=== PATIENT | female | born 1980 | race Caucasian/White ===

== ENCOUNTER 2021-10-23 18:38 | Emergency (ER) | payer OTHER ==
[2021-10-23 18:42] VITALS: RESP 20; TEMP 98
[2021-10-23] MEDS ORDERED: ASPIRIN 81 MG PO STA (19:36)
[2021-10-23] MEDS ORDERED: KETOROLAC 15 MG/ML 1 ML VIAL IVP STA (19:36)
[2021-10-23] MEDS ORDERED: methocarbamoL 750 MG TAB PO STA ×2 (19:36→21:00)
[2021-10-23 20:12] LABS: Basophils # (A) 0.1 k/uL (0-0.2); Basophils % (A) 1 %; Eosinophils # (A) 0.1 k/uL (0-0.7); Eosinophils % (A) 1 %; HCT 40.9 % (34.0-46.0); HGB 13.5 gm/dL (11.4-16.0); Lymphocytes % (A) 22 %; MCH 28.8 pg (25.0-35.0); MCV 87.2 fL (80.0-100.0); Mean Platelet Volume 9.9; Monocytes # (A) 0.5 k/uL (0-1.0); Monocytes % (A) 5 %; Neutrophils # (A) 6.4 k/uL (1.3-7.7); Neutrophils % (A) 69 %; Platelet Count 228 k/uL (150-450); RDW 13.1 % (11.5-15.5); WBC 9.2 k/uL (3.8-10.6)
[2021-10-23 20:22] LABS: African American GFR (CKD) >90 (>60 ml/min/1.73 sqM); Anion Gap 13 mmol/L; Blood Urea Nitrogen 17 mg/dL (7-17); Calcium 8.9 mg/dL (8.4-10.2); Carbon Dioxide 23 mmol/L (22-30); Chloride 102 mmol/L (98-107); Glucose 89 mg/dL (74-99); Non-African American GFR(CKD) 87 (>60 ml/min/1.73 sqM); Potassium 3.6 mmol/L (3.5-5.1); Sodium 138 mmol/L (137-145)
--- NOTE | 2021-10-23 20:40 | XR ---
EXAMINATION TYPE: XR chest 2V DATE OF EXAM: 10/23/2021 COMPARISON: NONE HISTORY: Arm pain TECHNIQUE: 2 views FINDINGS: Heart and mediastinum are normal. Lungs are clear. Diaphragm is normal. Bony thorax appears normal. IMPRESSION: Normal chest.
[2021-10-23 20:50] VITALS: BP 126/76; PULSE 68
--- NOTE | 2021-10-23 20:52 | XR ---
EXAMINATION TYPE: XR shoulder complete LT DATE OF EXAM: 10/23/2021 COMPARISON: NONE HISTORY: Arm pain TECHNIQUE: 3 views FINDINGS: The glenohumeral joint is intact. I see no fracture nor dislocation. Joint spaces are tony l. IMPRESSION: Negative left shoulder exam.
--- NOTE | 2021-10-23 21:09 | ED ---
General Adult HPI - General Chief complaint: Extremity Problem,Nontraumatic Stated complaint: lt arm pain Time Seen by Provider: 10/23/21 19:10 Source: patient, RN notes reviewed, old records reviewed Mode of arrival: ambulatory Limitations: no limitations - History of Present Illness Initial comments: Patient is a 41-year-old female with past medical history remarkable for hernia repair presents to the emergency Department complaining of acute on chronic left shoulder pain. Has experienced this pain before. However she started noticing it this morning and it seemed somewhat more intense. Describes the pain as a shooting, crampy pain that starts in her left shoulder and radiates down her left arm. Primarily seems to be in her bicep muscle. Worse with movement, palpation. No sensory deficits. Denies chest pain, shortness of breath, abdomi nal pain, nausea, vomiting. Denies any neck pain, paraspinal muscle pain. States she became concerned it may be related to her heart and wanted to be evaluated. Denies any fevers, chills, sick contacts. Denies any coughing. Presents for further evaluation. Symptoms started approximate 7 AM. - Related Data Previous Rx's Medication Instructions Recorded methocarbamoL [Robaxin-750] 1,500 mg PO TID PRN 7 Days #42 tab 10/23/21 Allergies Allergy/AdvReac Type Severity Reaction Status Date / Time No Known Allergies Allergy Verified 10/23/21 18:42 Review of Systems ROS Statement: Those systems with pertinent positive or pertinent negative responses have been documented in the HPI. Review of Systems: CONST: Denies fever EYES: Denies blurry vision ENT: Denies nasal congestion C/V: Denies Chest pain RESP: Denies shortness of breath GI: Denies abdominal pain : Denies dysuria SKIN: Denies rash. MSK: Endorses left shoulder pain NEURO: Denies headache ROS Other: All systems not noted in ROS Statement are negative. Past Medical History Past Medical History: No Reported History History of Any Multi-Drug Resistant Organisms: None Reported Past Surgical History: Hernia Repair, Orthopedic Surgery Past Psychological History: No Psychological Hx Reported Smoking Status: Vaper Past Alcohol Use History: None Reported Past Drug Use History: Marijuana General Exam - General Exam Comments Initial Comments: General: Appears in no acute distress. HEAD: Normal with no signs of head trauma. EYES: PERRLA, EOMI, conjunctiva normal, no discharge. ENT: Hearing grossly intact, normal oropharynx. RESPIRATORY: Clear breath sounds bilaterally. No wheezes, rales, or rhonchi. C/V: Regular rate and rhythm. S1 and S2 auscultated, no edema, peripheral pu lses 2+ and intact throughout ABD: Abd is soft, nontender, nondistended EXT: Normal range of motion. No obvious deformity. Tenderness to palpation over the left superior shoulder over the before meals joint that seems to trigger her crampy pain in her left bicep that radiates down her left arm. No paraspinal muscle tenderness to palpation. No cervical spine midline tenderness to palpation. Neurovascularly intact in the left upper extremity. SKIN: No rashes or lesions observed on exposed skin. NEURO: Alert and oriented 4. No focal sensory strength deficits. Limitations: no limitations Course Vital Signs 10/23/21 10/23/21 18:39 20:47 Temperature 98 F Pulse Rate 75 68 Respiratory 20 20 Rate Blood Pressure 146/86 126/76 O2 Sat by Pulse 98 95 Oximetry Medical Decision Making - Medical Decision Making Based on the patient's presentation and physical exam, I'm concerned for possible musculoskeletal injury for pain. Has expressed this pain before. However due to her having concern for possible cardiac involvement, I did discuss with him we will obtain basic cardiac labs. She'll be symptomatically treated and given an aspirin. She was in agreement this plan. Vital signs are within normal limits. EKG shows no signs of ischemia. Chest x-ray shows no acute cardio pulmonary process. Shoulder x-ray shows no acute process. Trace studies are all within normal limits including an undetectable troponin. On reevaluation come patient is feeling improved. Vital signs are within normal limits. We did discuss her workup and to be negative. She expressed understanding. I would like her to be discharged with follow-up with orthopedics if symptoms persist. She was in agreement this plan. We'll follow up with her PCP in the next few days. I will provide the patient with a prescription for Robaxin. I instructed the patient to follow up with their PCP in the next 1-3 days. I provided contact information for follow up with orthopedics. I explained that the patient should return to the emergency department if they experience any worsening symptoms. Strict return precautions were discussed with the patient. The patient expressed understanding of these instructions. I answered all questions that the patient had. The patient was discharged home in good condition with their prescriptions and follow up information. - Lab Data Result diagrams: 10/23/21 20:01 10/23/21 20:01 Lab Results 10/23/21 10/23/21 10/23/21 Range/Units 20:01 20:01 20:01 WBC 9.2 (3.8-10.6) k/uL RBC 4.70 (3.80-5.40) m/uL Hgb 13.5 (11.4-16.0) gm/dL Hct 40.9 (34.0-46.0) % MCV 87.2 (80.0-100.0) fL MCH 28.8 (25.0-35.0) pg MCHC 33.0 (31.0-37.0) g/dL RDW 13.1 (11.5-15.5) % Plt Count 228 (150-450) k/uL MPV 9.9 Neutrophils % 69 % Lymphocytes % 22 % Monocytes % 5 % Eosinophils % 1 % Basophils % 1 % Neutrophils # 6.4 (1.3-7.7) k/uL Lymphocytes # 2.0 (1.0-4.8) k/uL Monocytes # 0.5 (0-1.0) k/uL Eosinophils # 0.1 (0-0.7) k/uL Basophils # 0.1 (0-0.2) k/uL Sodium 138 (137-145) mmol/L Potassium 3.6 (3.5-5.1) mmol/L Chloride 102 (98-107) mmol/L Carbon Dioxide 23 (22-30) mmol/L Anion Gap 13 mmol/L BUN 17 (7-17) mg/dL Creatinine 0.85 (0.52-1.04) mg/dL Est GFR (CKD-EPI)AfAm >90 (>60 ml/min/1.73 sqM) Est GFR (CKD-EPI)NonAf 87 (>60 ml/min/1.73 sqM) Glucose 89 (74-99) mg/dL Calcium 8.9 (8.4-10.2) mg/dL Troponin I <0.012 (0.000-0.034) ng/mL - EKG Data -: EKG Interpreted by Me EKG Comments: 12-lead Electrocardiogram Interpretation Note EKG was reviewed and interpreted by myself. 12-lead ECG performed at 1845 is interpreted by me as revealing normal sinus rhythm at a rate of 70 beats per minute. Harmans is normal. [place] Intervals 182 ms, QRS duration is 82 ms, QTc is 440 ms.. There were no ST or T wave abnormalities to suggest myocardial ischemia or injury. There is an isolated t wave inversion, mild, in III with no reciprical changes. R wave progression across the precordium was satisfactory. By my interpretation this EKG is non-diagnostic for acute ischemia. Disposition Clinical Impression: Left shoulder pain Disposition: HOME SELF-CARE Condition: Good Instructions (If sedation given, give patient instructions): Shoulder Pain (ED) Prescriptions: methocarbamoL [Robaxin-750] 1,500 mg PO TID PRN 7 Days #42 tab PRN Reason: Pain Is patient prescribed a controlled substance at d/c from ED?: No Referrals: Nonstaff,Physician [Primary Care Provider] - 1-2 days Ethan Koch MD [Medical Doctor] - 1-2 days Time of Disposition: 20:55
== END 2021-10-23 21:21 | disposition home or self-care (01) ==
LOC: EC 18:38
DX: M25.512 Pain in left shoulder (principal); F17.290 Nicotine dependence, other tobacco product, uncomplicated
CPT/HCPCS: 36415; 80048; 84484; 85025; 73030; 71046; 99284; 96374; J1885; 93005